=== PATIENT | male | born 1985 | race Caucasian/White ===

== ENCOUNTER 2023-05-04 01:25 | Emergency (ER) | payer MEDICARE, SELFPAY ==
[2023-05-04 01:25] VITALS: BMI 23.0
[2023-05-04 01:29] VITALS: BP 136/90
[2023-05-04 01:48] VITALS: BP 144/88
[2023-05-04 01:53] LABS: % Basophils 0.2 % (0-2); % Immature Granulocytes 0.6 % (0-0.5); % Lymphocytes 4.3 % (20.5-51.1); % Monocytes 0.4 % (1.7-9.3); % Neutrophils 94.5 % (42.2-75.2); Absolute Lymphocytes 0.2 10^3/uL (1.2-3.4); Hematocrit 34.2 % (39.0-52.0); Hemoglobin 12.4 g/dL (13.0-18.0); Mean Corp Hgb Conc. 36.3 g/dL (33.0-37.0); Mean Corpuscular Hgb 31.8 pg (27.0-31.0); Mean Corpuscular Volume 87.7 fL (80.0-94.0); Mean Platelet Volume 9.2 fL (7.4-10.4); Nucleated Red Blood Cells % 0 % (-); Platelet Count 208 10^3/uL (130-400); Red Cell Dist. Width 13.1 % (11.5-14.5); White Blood Cell Count 5.3 10^3/uL (4.8-10.8)
[2023-05-04 02:00] VITALS: BP 134/88
[2023-05-04 02:19] LABS: ALT (SGPT) 21 U/L (0-50); AST (SGOT) 39 U/L (17-59); Acetaminophen < 10 ug/ml (10-30); Albumin 4.2 g/dl (3.5-5.0); Alkaline Phosphatase 79 U/L (38-126); Blood Urea Nitrogen 15 mg/dl (9-20); Calcium 9.2 mg/dl (8.4-10.2); Carbon Dioxide 22 mmol/L (22-30); Chloride 108 mmol/L (98-107); Estimated Creatinine Clearance 118 ml/min; Glucose 140 mg/dl (70-99); Salicylate < 1.0 mg/dl (2.0-20.0); Sodium 138 mmol/L (135-145); Total Bilirubin 0.9 mg/dl (0.2-1.3); Total Protein 6.9 g/dl (6.3-8.2); eGFR > 60.00
[2023-05-04 02:21] LABS: Alcohol None Detected
[2023-05-04 02:22] LABS: COVID-19 Antigen Negative (Negative)
--- NOTE | 2023-05-04 02:26 | ED.GENMED ---
History of Present Illness
<ELIUD Wright - Last Filed: 05/04/23 05:05>
General
Chief Complaint: Overdose Intentional
Source: patient and family
Time Seen by Provider: 05/04/23 02:06
Nursing documentation reviewed up to this point in time: agreed with
Travel History
Have you had any contact with someone who has COVID-19?: No
Do you have any symptoms of coronavirus? Fever > 100 degrees, chills, cough, shortness of breath, sore throat, loss of taste or smell, muscle aches, or headache?: No
History of Present Illness
History of Present Illness:
37 y/o M presents to ED after intentional overdose on Tylenol at 1999. Patient states he took 12 500mg of extra strength Tylenol with water all at once at 1999. He states he took them because he had a bad headache. He reports nausea, vomiting,
abdominal pain, headache, back pain and leg pain few hours later. Patient states he has never taken that many Tylenol before. He is not on any other medications and did not take any medications today with the Tylenol. Patient lives at home with his
mom. Mom states she was not home when patient overdosed.
If applicable-neuro sx onset
Onset of symptoms known: Yes
Date of onset of symptoms: 05/03/23
Time of onset of symptoms: 20:00
Time pt last seen normal is known: Yes
Date last time pt seen normal: 05/03/23
Past History
<ELIUD Wright - Last Filed: 05/04/23 05:05>
Past History
ED Past Medical History: None and Other (Heroin abuse)
ED Past Surgical History: None
Social History
Tobacco: Non-smoker
Alcohol: None
Family History
Family History: Negative CAD
Review of Systems
<ELIUD Wright - Last Filed: 05/04/23 05:05>
Review of Systems
Allergies reviewed?: Yes
All Other Systems: ROS reviewed and negative except as documented in HPI and ROS
Constitutional: Reports no symptoms
EENT: Reports no symptoms
Respiratory: Reports no symptoms
Cardiac: Reports no symptoms
ABD/GI: Reports abdominal pain, nausea, vomiting and pain
: Reports no symptoms
Musculoskeletal: Reports muscle pain and back pain
Skin: Reports no symptoms
Neurological: Reports headache
Endocrine: Reports no symptoms
Hematologic/Lymphatic: Reports no symptoms
Psychiatric: Reports no symptoms
Phy Exam
<ELIUD Wright - Last Filed: 05/04/23 05:05>
General Physical Exam
General Presentation: well appearing and moderate distress
General age: appears stated age
General Skin: warm and dry
General Habitus: normal
General Mental: alert
General Hydration: appears well hydrated
ENT Exam
ENT Exam: pharynx normal and neck supple
Eye Exam
Eye Exam: PERRL, EOMI and conjunctiva normal
Cardiovascular Exam
Cardiovascular Exam: regular rate/rhythm, no edema, no gallop, no murmur and normal peripheral pulses
Pulmonary Exam
Pulmonary Exam: lungs clear, no respiratory distress, no rales, no crackles and no rhonchi
Gastrointestinal Exam
Gastrointestinal Exam: normal bowel sounds, non tender, soft and non distended
Neurological Exam
Neurological Exam: alert and oriented x3
Musculoskeletal Exam
Musculoskeletal Exam: full ROM
Skin Exam
Skin Exam: normal color, warm/dry and no rash
Psychiatric Exam
Psychiatric Exam: agitated
Course
<ELIUD Wright - Last Filed: 05/04/23 05:05>
Orders/Labs/Results
Orders:
Orders
05/04/23 01:39
Acetaminophen Urgent
Alcohol Urgent
Complete Blood Count/With Diff Urgent
Comprehensive Metabolic Panel Urgent
Lipase Urgent
Comment: ADDED
Salicylate Urgent
05/04/23 02:05
COVID-19 Antigen Urgent
Source: Nasal Swab
05/04/23 02:44
Add On- LAB Urgent
Tests Added?: lipase
05/04/23 02:45
0.9% Sodium Chloride 1000 ml [Nss] 1,000 ml IV BOLUS
Metoclopramide [Reglan] 10 mg IV NOW STA
05/04/23 05:41
CT Abd/pelvis W Iv Cont Urgent
Comment:
Reason For Exam: gen lower abd pain, N/V
05/04/23 06:01
Fentanyl, Urine Urgent
Urinalysis Reflex To Culture Urgent
Date Specimen was Collected: 05/04/23
Time Specimen was Collected: 06:00
Urine Drug Abuse Screen Urgent
Date Specimen was Collected: 05/04/23
Time Specimen was Collected: 06:00
Abnormal Lab Results
05/04/23 05/04/23
01:39 06:01
RBC 3.90 L 10^6/uL
(4.70-6.10)
Hgb 12.4 L g/dL
(13.0-18.0)
Hct 34.2 L %
(39.0-52.0)
MCH 31.8 H pg
(27.0-31.0)
Absolute Lymphs (auto) 0.2 L 10^3/uL
(1.2-3.4)
Absolute Monos (auto) 0.0 L 10^3/uL
(0.1-0.6)
Immature Gran % 0.6 H %
(0-0.5)
Neutrophils % 94.5 H %
(42.2-75.2)
Lymphocytes % 4.3 L %
(20.5-51.1)
Monocytes % 0.4 L %
(1.7-9.3)
Potassium 3.0 L mmol/L
(3.5-5.1)
Chloride 108 H mmol/L
(98-107)
Glucose 140 H mg/dl
(70-99)
Salicylates < 1.0 L mg/dl
(2.0-20.0)
Ur Buprenorphine Positive H
(Negative)
Ur Oxycodone Screen Positive H
(Negative)
Acetaminophen < 10 L ug/ml
(10-30)
U Benzodiazepines Scrn Positive H
(Negative)
U Marijuana (THC) Screen Positive H
(Negative)
05/04/23 01:39
05/04/23 01:39
Vital Signs
Initial and Last Documented VS:
Initial Vital Signs
Temp Pulse Resp BP Pulse Ox
99.2 F 124 26 136/90 100
05/04/23 01:29 05/04/23 01:29 05/04/23 01:29 05/04/23 01:29 05/04/23 01:29
Last Documented Vital Signs
Temp Pulse Resp BP Pulse Ox
99.2 F 90 16 107/70 97
05/04/23 01:29 05/04/23 06:28 05/04/23 06:28 05/04/23 06:28 05/04/23 06:28
<Natasha Neil, DO - Last Filed: 05/04/23 07:45>
Orders/Labs/Results
Orders:
Orders
05/04/23 01:39
Acetaminophen Urgent
Alcohol Urgent
Complete Blood Count/With Diff Urgent
Comprehensive Metabolic Panel Urgent
Lipase Urgent
Comment: ADDED
Salicylate Urgent
05/04/23 02:05
COVID-19 Antigen Urgent
Source: Nasal Swab
05/04/23 02:44
Add On- LAB Urgent
Tests Added?: lipase
05/04/23 02:45
0.9% Sodium Chloride 1000 ml [Nss] 1,000 ml IV BOLUS
Metoclopramide [Reglan] 10 mg IV NOW STA
05/04/23 05:41
CT Abd/pelvis W Iv Cont Urgent
Comment:
Reason For Exam: gen lower abd pain, N/V
05/04/23 06:01
Fentanyl, Urine Urgent
Urinalysis Reflex To Culture Urgent
Date Specimen was Collected: 05/04/23
Time Specimen was Collected: 06:00
Urine Drug Abuse Screen Urgent
Date Specimen was Collected: 05/04/23
Time Specimen was Collected: 06:00
Abnormal Lab Results
05/04/23 05/04/23
01:39 06:01
RBC 3.90 L 10^6/uL
(4.70-6.10)
Hgb 12.4 L g/dL
(13.0-18.0)
Hct 34.2 L %
(39.0-52.0)
MCH 31.8 H pg
(27.0-31.0)
Absolute Lymphs (auto) 0.2 L 10^3/uL
(1.2-3.4)
Absolute Monos (auto) 0.0 L 10^3/uL
(0.1-0.6)
Immature Gran % 0.6 H %
(0-0.5)
Neutrophils % 94.5 H %
(42.2-75.2)
Lymphocytes % 4.3 L %
(20.5-51.1)
Monocytes % 0.4 L %
(1.7-9.3)
Potassium 3.0 L mmol/L
(3.5-5.1)
Chloride 108 H mmol/L
(98-107)
Glucose 140 H mg/dl
(70-99)
Salicylates < 1.0 L mg/dl
(2.0-20.0)
Ur Buprenorphine Positive H
(Negative)
Ur Oxycodone Screen Positive H
(Negative)
Acetaminophen < 10 L ug/ml
(10-30)
U Benzodiazepines Scrn Positive H
(Negative)
U Marijuana (THC) Screen Positive H
(Negative)
05/04/23 01:39
05/04/23 01:39
Vital Signs
Initial and Last Documented VS:
Initial Vital Signs
Temp Pulse Resp BP Pulse Ox
99.2 F 124 26 136/90 100
05/04/23 01:29 05/04/23 01:29 05/04/23 01:29 05/04/23 01:29 05/04/23 01:29
Last Documented Vital Signs
Temp Pulse Resp BP Pulse Ox
99.2 F 90 16 107/70 97
05/04/23 01:29 05/04/23 06:28 05/04/23 06:28 05/04/23 06:28 05/04/23 06:28
<Natasha Neil DO - Last Filed: 05/04/23 07:45>
*Radiology
Radiology exam reviewed: radiology read reviewed
*Pulse Oximetry
Patient hypoxic: no
*[employer] Interpretation
Rate: tachycardiac
Interpretation: abnormal
Rhythm: sinus
*Critical Care Note
Total Time (30-74mins, 75-104mins- exclusive of procedures): Not Applicable
<ELIUD Wright - Last Filed: 05/04/23 05:05>
Update Note
Update Note:
0500: Patient states headache is better. He is still having abdominal pain, unable to get comfortable. Patient has not yet urinated.
ED Attending Note
<ELIUD Wright - Last Filed: 05/04/23 05:05>
-
Portions of this chart may have been created with voice recognition software.� Occasional wrong word or��sound alike� substitutions may have occurred due to the inherent limitations of voice recognition software.
<Natasha Neil DO - Last Filed: 05/04/23 07:45>
ED Attending Note
Patient seen and examined by attending physician: Yes
I performed the substantive portion of visit, reviewed & personally made and approve the management plan that is documented in note by myself or HENRIQUE.: Yes
ED Attending Note:
This is a 37-year-old male who has prior history of substance use disorder/heroin abuse who has been maintained on Suboxone until 2021. He also has history of migraine headaches, sporadic in nature.
Currently takes no medications on a daily basis.
He complains of generalized headache that began earlier today, persistent throughout the day accompanied with generalized aches, fatigue. Due to ongoing headache and generalized aches patient states he took about 12 Tylenol tablets at 8 PM in an
attempt to relieve his headache and aches. He denies wanting to hurt himself, denies taking any other medications. Approximately 1 hour after alleged Tylenol overdose patient developed nausea and vomiting. He remains quite nauseous with
intermittent upper abdominal discomfort that resolves after vomiting. He denies hematemesis, denies diarrhea or constipation. No close contacts with similar symptoms. No recent travel.
He arrives to the ED accompanied by his mother.
GENERAL: 37-year-old male appears his stated age, awake and alert, appears in mild distress, frequently requesting water to drink however continues to complain of nausea. Low-grade fever noted 99.2 �F.
EYE: pupils equal and reactive. anicteric
NECK: Supple, nontender, no meningismus, no significant adenopathy.
ENT: posterior pharynx is clear, oral mucosa is mildly dry. TM clear b/l, nares patent.
CARDIAC: Regular rhythm, mildly tachycardic. no murmur.
LUNGS: Clear breath sounds bilaterally, no acute respiratory distress, no wheezes/rales/rhonchi
ABDOMEN: Soft, nondistended, without focal tenderness, no r/g, no cvat. normoactive BS.
NEUROLOGICAL: Alert and oriented x3, no focal neuro deficits.
SKIN: Warm and dry, normal color, skin intact. No rash.
MUSCULOSKELETAL: No C/C/E. peripheral pulses are full and equal b/l. No palpable tenderness.
PSYCH: Mildly anxious. Cooperative.
Concern for acute toxic ingestion, acetaminophen versus salicylate versus other [id number] pain medication.
Concern for acute viral syndrome, gastroenteritis, pancreatitis, GI bleed, less likely bowel obstruction.
Concern for opioid withdrawal syndrome.
Labs thus far reveal normal white blood cell count, mild anemia. Chemistries show mild hypokalemia with potassium of 3.0. Normal H&H. Normal LFTs. Will add lipase to blood in the lab.
Will check urinalysis as well as UDS.
Salicylate and acetaminophen levels are negative. Clearly patient did not ingest 6 g of acetaminophen. They have been mistaken and taking ibuprofen.
Will initiate IV fluids and give an IV dose of Reglan for nausea and headache.
Will continue to observe and reassess.
05/04/2023 05:30 AM
After IV fluids and IV Reglan, headache is resolved. Nausea has improved. Patient has had no further vomiting after IV Reglan and is tolerating sips of water.
He continues to complain of some abdominal pain and repeat exam notes mildly distended bladder with generalized lower abdominal tenderness with deep palpation only.
Will check CT abdomen pelvis assess for potential appendicitis.
Patient has been encouraged to get up going to the bathroom and to void. Will check urinalysis and will check UDS as well. Potential concern for opioid withdrawal symptoms but overall appearing much more comfortable.
05/04/2023 0705 AM
Urinalysis is unremarkable.
CT shows acute gastroenteritis. Some gallbladder edema likely sequelae of iatrogenic IV fluids. LFTs within normal limits and patient has had no upper abdominal discomfort.
He continues to appear comfortable, sleeping when undisturbed has had no return of nausea nor vomiting.
I suspect acute viral, less likely foodborne gastroenteritis.
Recommend supportive measures, limiting diet to clear liquids today, slowly advance as tolerated.
A prescription for Zofran ODT has been prescribed for as needed nausea.
Discussed importance of medication safety and to take [id number] medicines as prescribed.
Prompt follow-up with PCP for recheck.
Return precautions discussed.
05/04/2023 0743 AM
Of note, UDS returned positive for buprenorphine, oxycodone, benzodiazepines and THC.
As above, patient's symptoms may be somewhat attributed to opioid withdrawal but overall appeared quite comfortable and improved at time of discharge.
Discharge Plan
Departure
Patient Disposition: Home (Routine Discharge)
Date of Disposition: 05/04/23
Time of Disposition: 06:59
Patient with high blood pressure during this ER visit?: No
Condition: Good
Discharge Problem:
Acute gastroenteritis, nontoxic unintentional ingestion, Substance use disorder
Instructions: Clear Liquid Diet, Viral Gastroenteritis, Adult (DC)
Prescriptions:
New
ondansetron 4 mg tablet,disintegrating
4 mg PO QID PRN (Reason: nausea and vomiting) Qty: 20 0RF
Referrals:
Tung Camara, [Family Provider] - Call in 1-3 days for appt
Interventions
Interventions:
*Risk Screen - Suicide Last Done: 05/04/23 01:54
*General Assessment Last Done: 05/04/23 01:54
*Neglect/Abuse Screening Last Done: 05/04/23 01:29
ED- Fall Risk Assessment Last Done: 05/04/23 01:54
*ED COVID-19 Vaccine History Last Done: 05/04/23 01:54
*Nursing Disposition Last Done: 05/04/23 07:15
OR-Kjrbah-Lbqouzgjef Assessment Last Done: 05/04/23 01:54
ED- Cardiac Assessment Last Done: 05/04/23 01:54
ED- Neurological Assessment Last Done: 05/04/23 01:54
ED-Psychological Assessment Last Done: 05/04/23 01:54
ED- Pulmonary Assessment Last Done: 05/04/23 01:54
Discharge Date and Time
Discharge Date/Time: 05/04/23 07:20
[2023-05-04 03:00] VITALS: BP 118/81
[2023-05-04] MEDS: REGLAN 10 MG IV (03:14)
[2023-05-04] MEDS: NSS 1000 IV (03:14)
[2023-05-04 03:48] LABS: Lipase 116 U/L (23-300)
[2023-05-04 06:28] VITALS: BP 107/70
[2023-05-04 06:32] LABS: Urine Albumin Negative (Neg - Trace); Urine Bilirubin Negative (Negative); Urine Character Clear (Clear); Urine Color Yellow; Urine Glucose Negative (Negative); Urine Ketone Negative (Negative); Urine Leukocyte Negative (Negative); Urine Nitrite Negative (Negative); Urine Occult Blood Negative (Negative); Urine Specific Gravity 1.015 (<1.030); Urine Urobilinogen Negative (Neg - 1+)
[2023-05-04 07:17] LABS: Benzodiazepines Positive (Negative); Buprenorphine Positive (Negative)
[2023-05-04 07:18] LABS: Amphetamines Negative (Negative); Barbiturates Negative (Negative); Cocaine Negative (Negative); Marijuana Positive (Negative); Methadone Negative (Negative); Methamphetamines Negative (Negative); Opiates Negative (Negative); Phencyclidine Negative (Negative); Tricyclic Antidepressants Negative (Negative)
[2023-05-04 07:35] LABS: Fentanyl, Urine Negative (Negative)
== END 2023-05-04 07:20 | disposition home or self-care (01) ==
LOC: EMR 01:25
PROVIDERS: EMERGENCY PHYSICIAN Emergency Medicine; FAMILY PHYSICIAN Family Medicine
DX: K52.9 Noninfective gastroenteritis and colitis, unspecified (principal); F19.19 Other psychoactive substance abuse with unspecified psychoactive substance-induced disorder; T39.1X1A Poisoning by 4-Aminophenol derivatives, accidental (unintentional), initial encounter
CPT/HCPCS: 99285; 96374; 74177; 80053; 80143; 80179; 80306; 80307; 81003; 82077; 83690; 85025; 87811; Q9967